=== PATIENT | female | born 1985 | race African-American/Black ===

== ENCOUNTER 2016-11-22 15:12 | Emergency (ER) | payer SELFPAY ==
[2016-11-22 15:52] VITALS: BP 128/70; PULSE 83; TEMP 98.5; BMI 48.4
[2016-11-22] MEDS ORDERED: ACETAMINOPHEN 325 MG TABLET (FP) ONE (17:18)
--- NOTE | 2016-11-22 17:26 | PDOC ---
History of Present Illness - General Chief Complaint: Sore Throat Stated Complaint: THROAT PAIN Time Seen by Provider: 11/22/16 16:47 History Source: Patient Exam Limitations: No Limitations - History of Present Illness Initial Comments: 11/22/16 17:19 Patient states slept with window open last night and air conditioning on under the air-conditioner and feels the amount of postnasal drainage. Denies fever, denies any cough however has significant throat pain and difficulty swallowing. Severity: reports: moderate Possible Cause: Yes: no prior episodes Associated Symptoms: reports: denies symptoms, earache, fever/chills, muscle aches, nasal congestion, nasal drainage, sore throat Past History - Travel Traveled outside of the country in the last 30 days: No Close contact w/someone who was outside of country & ill: No - Past Medical History Allergies/Adverse Reactions: Allergies Allergy/AdvReac Type Severity Reaction Status Date / Time No Known Allergies Allergy Verified 11/22/16 15:52 Home Medications: Ambulatory Orders Docusate Sodium [Colace -] 100 mg PO DAILY 04/03/16 Vitamins (Sjr) - 1 tab PO DAILY 04/03/16 Ibuprofen [Motrin -] 600 mg PO QID #28 tablet 04/06/16 Asthma: No Cancer: No Cardiac Disorders: No Diabetes: No HTN: No Seizures: No Thyroid Disease: No Other medical history: obesity - Psycho/Social/Smoking Cessation Hx Anxiety: No Suicidal Ideation: No Smoking Status: Yes Smoking History: Never smoked Have you smoked in the past 12 months: No Number of Cigarettes Smoked Daily: 3 Information on smoking cessation initiated: No Hx Alcohol Use: No Drug/Substance Use Hx: No Substance Use Type: None Hx Substance Use Treatment: No Review of Systems - Review of Systems Able to Perform ROS?: Yes Is the patient limited Honduran proficient: Yes Constitutional: Yes: Symptoms Reported, Malaise HEENTM: Yes: Symptoms Reported, Nose Congestion, Throat Swelling, Difficulty Swallowing Respiratory: Yes: See HPI. No: Symptoms reported, Cough, Wheezing Cardiac (ROS): No: Symptoms Reported All Other Systems: Reviewed and Negative *Physical Exam - Vital Signs Last Vital Signs Temp Pulse Resp BP Pulse Ox 98.5 F 83 18 128/70 99 11/22/16 15:50 11/22/16 15:50 11/22/16 15:50 11/22/16 15:50 11/22/16 15:50 - Physical Exam General Appearance: Yes: Nourished, Appropriately Dressed, Apparent Distress, Mild Distress HEENT: positive: MANI, TMs Normal, Pharyngeal Erythema (congestion noted but landmarks easily visualized airways patent however has been a large left tonsil nonfluctuant and nontender), Nasal Congestion, Rhinorrhea. negative: Normal ENT Inspection, Pharynx Normal Neck: positive: Supple. negative: Tender, Lymphadenopathy (R), Lymphadenopathy (L) Respiratory/Chest: positive: Lungs Clear, Normal Breath Sounds Cardiovascular: positive: Regular Rate Gastrointestinal/Abdominal: positive: Tender, Soft Extremity: positive: Normal Inspection Integumentary: positive: Normal Color, Dry, Warm, Pale Neurologic: positive: sales and marketing specialist II-XII NML intact, Fully Oriented, Alert, Normal Mood/ Affect, Normal Response, Motor Strength 5/5 Medical Decision Making - Medical Decision Making 11/22/16 19:02 But strep test negative. Will treat conservatively as patient is , and have follow-up with PMD as needed. *DC/Admit/Observation/Transfer Diagnosis at time of Disposition: Allergic rhinitis Qualifiers: Allergic rhinitis trigger: unspecified Allergic rhinitis seasonality: non- seasonal Qualified Code(s): J30.89 - Other allergic rhinitis - Discharge Dispostion Disposition: HOME Condition at time of disposition: Stable Admit: No - Referrals Referrals: Celine Begum [Primary Care Provider] - - Patient Instructions Printed Discharge Instructions: DI for Allergic Rhinitis Additional Instructions: Rest, drink lots of fluids: Teas, water, soups Saltwater gargles. Consider humidifier in room at night Steamy showers/seem to face break up mucus Avoid contact with allergens, exposure to pollens, close windows on a windy day Lots of handwashing and good hygiene Continue [id number] medications for symptomatic relief- may use allergic eyedrops for itching I Continue antihistamines daily until pollen season is over; Benadryl at nighttime as will make sleepy Tylenol for fever and pain Followup with private physician in one to 2 days as needed Consider following up with an investigator utility bill complaints/pharmacy technologist for skin testing and possible allergy shots Return to emergency department for worsened symptoms, fevers, dehydration
== END 2016-11-22 18:24 | disposition home or self-care (01) ==
LOC: JERFT 15:12
DX: J30.89 Other allergic rhinitis (principal)
CPT/HCPCS: 87070; 87430; 99281-25

== ENCOUNTER 2017-06-26 | Inpatient (IN) | payer OTHER ==
[~2017-06-26] MED LIST: ELECTROLYTE-148 SOLN 1,000 ML IV SCH
[2017-06-26 00:55] VITALS: BMI 58.3
[2017-06-26 00:55] LABS: BASOPHIL 0.3 % (0-2.0); EOSINOPHIL 0.7 % (0-4.5); MCH 28.6 pg (25.7-33.7); MCHC 32.8 g/dl (32.0-36.0); MEAN CELL VOLUME 87.1 fl (80-96); MEAN PLT VOLUME 8.8 fl (7.5-11.1); PLATELET COUNT 206 K/MM3 (134-434); RDW 14.1 % (11.6-15.6); WHITE BLOOD COUNT 8.3 K/mm3 (4.0-10.0)
[2017-06-26 01:07] LABS: URINE MARIJUANA THC NEGATIVE ng/ml (CUTOFF=50)
[2017-06-26 01:19] LABS: ANION GAP 8 (8-16); CALCIUM 8.7 mg/dL (8.5-10.1); CO2 25 mmol/L (21-32); CREATININE 0.6 mg/dL (0.55-1.02); GLUCOSE,RANDOM 88 mg/dL (74-106)
[2017-06-26 01:30] LABS: INR 0.94 (0.82-1.09); PROTHROMBIN TIME (PATIENT) 10.6 SEC (9.98-11.88)
[2017-06-26 01:33] LABS: ACTIVATED PTT 35.6 SECONDS (26.9-34.4)
[2017-06-26] MEDS ORDERED: BUTORPHANOL TARTRATE 1 MG/ML VIAL IVPUSH ONE (02:00)
[2017-06-26] MEDS ORDERED: PROMETHAZINE HCL 25 MG/1 ML VIAL IVPUSH ONE (02:00)
--- NOTE | 2017-06-26 03:10 | HP ---
Past Medical History - Admission Chief Complaint: Labor pain History of Present Illness: 31 yo @ 39.6 weeks gestation, admitted for labor pain. She denes any rupture of membrane nor vaginal bleeding. She only had 2 visits. History Source: Patient Limitations to Obtaining History: No Limitations - Past Medical History ...: 9 ...Para: 4 ...Term: 4 ...: 0 ...Spon : 0 ...Induced : 4 ...Multiple Gestation: 0 ...EDC by [facility]: 06/27/17 - Past Surgical History Past Surgical History: Yes: None Hx Myomectomy: No Hx Transabdominal Cerclage: No - Smoking History Smoking history: Never smoked Have you smoked in the past 12 months: No Aproximately how many cigarettes per day: 3 - Alcohol/Substance Use Hx Alcohol Use: No - Social History History of Recent Travel: No Home Medications - Allergies Allergies/Adverse Reactions: Allergies Allergy/AdvReac Type Severity Reaction Status Date / Time No Known Allergies Allergy Verified 11/22/16 15:52 - Home Medications Home Medications: Ambulatory Orders Vitamins (Sjr) - 1 tab PO DAILY 04/03/16 Family Disease History - Family Disease History Family History: Unremarkable Review of Systems - Review of Systems Constitutional: reports: No Symptoms Eyes: reports: No Symptoms HENT: reports: No Symptoms Neck: reports: No Symptoms Cardiovascular: reports: No Symptoms Respiratory: reports: No Symptoms Gastrointestinal: reports: No Symptoms Genitourinary: reports: Pain Breasts: reports: No Symptoms Reported Musculoskeletal: reports: No Symptoms Integumentary: reports: No Symptoms Neurological: reports: No Symptoms Endocrine: reports: No Symptoms Hematology/Lymphatic: reports: No Symptoms Psychiatric: reports: No Symptoms Pain Intensity: 7 Physical Exam - Maternity Vital Signs: Vital Signs Temperature 98.0 F 06/26/17 01:00 Pulse Rate 86 06/26/17 02:00 Respiratory Rate 20 06/26/17 02:00 Blood Pressure 153/88 06/26/17 02:00 O2 Sat by Pulse Oximetry (%) Constitutional: Yes: Well Nourished Eyes: Yes: Conjunctiva Clear HENT: Yes: Atraumatic Neck: Yes: Supple Cardiovascular: Yes: Regular Rate and Rhythm Lungs: Clear to auscultation Breast(s): Yes: WNL - Abdominal Exam/OB Number of Fetuses: Single Presentation: Vertex - Vaginal Exam/OB Dilatation (cm): 3-3 Effacement (%): 80 Amniotic Membrane Status: Intact Station: -2 - Physical Exam ...Motor Strength: WNL Psychiatric: Yes: Alert, Oriented - Labs Lab Results: CBC, BMP 06/26/17 00:35 06/26/17 00:35 Problem List - Problems (1) Pain during labor Code(s): O99.89 - OTH DISEASES AND CONDITIONS COMPL PREG/CHLDBRTH; R52 - PAIN, UNSPECIFIED Assessment/Plan Active labor Analgesia as needed Anticipate
--- NOTE | 2017-06-26 03:14 | PN ---
Progress Note (short form) - Note Progress Note: Patient seen and evaluated. She's status post stadol; she's sleeping comfortably. FHR : Reassuring [place] : + irregular contractions VE : /-1 AROM clear A/P : Active labor Anticipate Problem List - Problems (1) Pain during labor Code(s): O99.89 - OTH DISEASES AND CONDITIONS COMPL PREG/CHLDBRTH; R52 - PAIN, UNSPECIFIED
[2017-06-26] MEDS ORDERED: METHYLERGONOVINE MALEATE 0.2 MG/1 ML AMP IM PRN (03:39)
[2017-06-26] MEDS ORDERED: BENZOCAINE 20% 57 GM BOTTLE TP PRN (03:39)
[2017-06-26] MEDS ORDERED: WITCH HAZEL 50% (TUCKS) 40 PAD/JAR PAD TP PRN (03:39)
[2017-06-26] MEDS ORDERED: BENZOCAINE 28 GM HEMORRHOIDAL OINTMENT TP PRN (03:39)
[2017-06-26] MEDS ORDERED: BISACODYL 10 MG SUPP.RECT RC PRN (03:39)
[2017-06-26] MEDS: OXYTOCIN 20 UNITS in 0.9% NS 20 UNIT/1,000 ML INFUS.BAG IV SCH ×2 (03:40→07:20)
--- NOTE | 2017-06-26 03:43 | PN ---
Delivery - Delivery Vaginal Delivery: Spontaneous Episiotomy/Laceration: None EBL (cc): 300 Delivery, Single - Feeding Plan Initial Plan: Elected not to breastfeed exclusively throughout hospitalization Remarks - Remarks Remarks: Normal spontaneous vaginal delivery of a live infant girl over intact perineum. Nose / Oropharynx suctioned @ perineum. Cord clamped and cut. Placenta expelled spontaneously intact.
--- NOTE | 2017-06-26 03:47 | DS ---
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 Vital Signs: Vital Signs Temperature 98.0 F 06/26/17 01:00 Pulse Rate 86 06/26/17 02:00 Respiratory Rate 20 06/26/17 02:00 Blood Pressure 153/88 06/26/17 02:00 O2 Sat by Pulse Oximetry (%) Constitutional: Yes: Well Nourished Eyes: Yes: Conjunctiva Clear HENT: Yes: Atraumatic Neck: Yes: Supple Cardiovascular: Yes: Regular Rate and Rhythm Respiratory: Yes: Regular Gastrointestinal: Yes: Normal Bowel Sounds External Genitalia: Yes: Normal Vaginal Exam: Yes: Normal Cervix: Yes: Normal Uterus: Yes: Firm ....Post : Yes: Uterus firm, Moderate lochia serosa Breast(s): Yes: WNL Neurological: Yes: Alert, Oriented ...Motor Strength: WNL Psychiatric: Yes: Alert, Oriented Labs: CBC, BMP 06/26/17 00:35 06/26/17 00:35 Delivery - Delivery Vaginal Delivery: Spontaneous Episiotomy/Laceration: None EBL (cc): 300 Delivery, Single - 1 Minute Total Score: 9 5 Minutes Total Score: 9 - Feeding Plan Initial Plan: Elected not to breastfeed exclusively throughout hospitalization Discharge Summary Reason For Visit: LABOR ADMIT Current Active Problems Normal spontaneous vaginal delivery (Acute) Pain during labor (Acute) Procedures: Principal: Spontaneous vaginal delivery Hospital Course: Routine care Condition: Good - Instructions Diet, Activity, Other Instructions: Regular diet No douching, no sexual intercourse x 6 weeks F/U in clinic in 6 weeks Disposition: HOME - Home Medications Comprehensive Discharge Medication List: Ambulatory Orders Vitamins (Sjr) - 1 tab PO DAILY 04/03/16
[2017-06-26] MEDS: ACETAMINOPHEN 325 MG TABLET (FP) PO PRN ×3 (05:05→14:23)
[2017-06-26] MEDS: IBUPROFEN 600 MG TABLET (FP) PO PRN ×3 (05:05→14:22)
[2017-06-26] MEDS: FERROUS SO4 325 MG TABLET (FP) PO SCH ×3 (08:27→17:17)
[2017-06-26] MEDS: PRENATAL VITAMINS W/ FOLIC ACID TABLET (FP) PO SCH (09:09)
[2017-06-26] MEDS ORDERED: oxyCODONE HCL 5 MG TABLET PO PRN (16:02)
[2017-06-27 07:31] LABS: BASOPHIL 0.3 % (0-2.0); EOSINOPHIL 1.8 % (0-4.5); MCH 28.7 pg (25.7-33.7); MCHC 32.6 g/dl (32.0-36.0); MEAN CELL VOLUME 88.1 fl (80-96); MEAN PLT VOLUME 8.9 fl (7.5-11.1); NEUTROPHILS 55.5 % (42.8-82.8); PLATELET COUNT 194 K/MM3 (134-434); WHITE BLOOD COUNT 8.5 K/mm3 (4.0-10.0)
[2017-06-27] MEDS: IBUPROFEN 600 MG TABLET (FP) PO PRN (08:35)
[2017-06-27] MEDS: ACETAMINOPHEN 325 MG TABLET (FP) PO PRN (08:35)
[2017-06-27] MEDS: FERROUS SO4 325 MG TABLET (FP) PO SCH ×3 (08:35→17:04)
[2017-06-27] MEDS: PRENATAL VITAMINS W/ FOLIC ACID TABLET (FP) PO SCH (09:27)
--- NOTE | 2017-06-27 10:09 | PN ---
Post Progress Note - Subjective Subjective: no complains . Post Day: 1 Type of Delivery: Vital Signs: Vital Signs Temperature 98.0 F 06/26/17 22:00 Pulse Rate 78 06/26/17 22:00 Respiratory Rate 20 06/26/17 22:00 Blood Pressure 128/88 06/26/17 22:00 O2 Sat by Pulse Oximetry (%) Breast Exam: Yes: Soft, Other (BF ) Uterus: Yes: Fundus Firm, Fundus below umbilicus, Non-tender Lochia: Yes: Rubra Lochia, amount: Moderate Extremities: Yes: Calves non-tender Perineum: Yes: Intact Activity: Ambulating - Labs Labs: CBC WBC 8.5 K/mm3 (4.0-10.0) 06/27/17 06:30 RBC 3.45 M/mm3 (3.60-5.2) L 06/27/17 06:30 Hgb 9.9 GM/dL (10.7-15.3) L 06/27/17 06:30 Hct 30.4 % (32.4-45.2) L 06/27/17 06:30 MCV 88.1 fl (80-96) 06/27/17 06:30 MCH 28.7 pg (25.7-33.7) 06/27/17 06:30 MCHC 32.6 g/dl (32.0-36.0) 06/27/17 06:30 RDW 14.0 % (11.6-15.6) 06/27/17 06:30 Plt Count 194 K/MM3 (134-434) 06/27/17 06:30 MPV 8.9 fl (7.5-11.1) 06/27/17 06:30 Neutrophils % 55.5 % (42.8-82.8) 06/27/17 06:30 Lymphocytes % 32.1 % (8-40) D 06/27/17 06:30 Monocytes % 10.3 % (3.8-10.2) H 06/27/17 06:30 Eosinophils % 1.8 % (0-4.5) D 06/27/17 06:30 Basophils % 0.3 % (0-2.0) 06/27/17 06:30 Assessment/Plan Anemia .stable discharge tomorrow.
[2017-06-27] MEDS ORDERED: SENNOSIDES/DOCUSATE COMBO (SENNA PLUS) TABLET (UD) PO PRN (22:00)
[2017-06-28 07:38] VITALS: BP 134/84; PULSE 82; TEMP 98.6
[2017-06-28] MEDS: PRENATAL VITAMINS W/ FOLIC ACID TABLET (FP) PO SCH (09:06)
[2017-06-28] MEDS: FERROUS SO4 325 MG TABLET (FP) PO SCH (09:06)
[2017-06-28] MEDS: IBUPROFEN 600 MG TABLET (FP) PO PRN (09:06)
== END 2017-06-28 11:15 | disposition home or self-care (01) | DRG 560 ==
LOC: JLDR → J3W 05:30
PROVIDERS: ADMIT Obstetrics & Gynecology; ATTEND Obstetrics & Gynecology
PROC: 10E0XZZ Delivery of Products of Conception, External Approach (ICD-10-PCS; principal; 2017-06-26)
DX: O99.02 Anemia complicating childbirth (principal); D64.9 Anemia, unspecified; Z37.0 Single live birth; Z3A.39 39 weeks gestation of pregnancy
CPT/HCPCS: 36415; 59409; 80048; 80307; 85025; 85610; 85730; 86593; 86850; 86900; 86901

== ENCOUNTER 2018-03-31 08:23 | Emergency (ER) | payer OTHER ==
[2018-03-31 08:32] VITALS: BMI 50.0
--- NOTE | 2018-03-31 08:41 | PDOC ---
History of Present Illness - General Chief Complaint: Vaginal Sxs Stated Complaint: VAGINAL Time Seen by Provider: 03/31/18 08:41 - History of Present Illness Initial Comments: 32 year old [id number] presenting with copious clear vaginal discharge a half an hour before presentation to our ED. She was in her car and expected to pass gas with some bearing down but instead felt copious vaginal discharge that was clear and concerning to her for amniotic fluid. Her LMP was 02/17/2018 and she hasn't had it yet this month. She is usually quite regular since her last delivery on 06/2017. Denies any bleeding. fevers, chills, nausea, vomiting, diarrhea, abdominal cramping, or other symptoms. She has had increasing abdominal girth over the pat few months but attributed that to regular weight gain. 03/31/18 08:42 Past History - Past Medical History Allergies/Adverse Reactions: Allergies Allergy/AdvReac Type Severity Reaction Status Date / Time No Known Allergies Allergy Verified 03/31/18 08:29 Home Medications: Ambulatory Orders Vitamins (Sjr) - 1 tab PO DAILY 04/03/16 Asthma: No Cancer: No Cardiac Disorders: No Diabetes: No HTN: No Seizures: No Thyroid Disease: No - Suicide/Smoking/Psychosocial Hx Smoking Status: Yes Smoking History: Never smoked Have you smoked in the past 12 months: No Number of Cigarettes Smoked Daily: 3 Information on smoking cessation initiated: No Hx Alcohol Use: No Drug/Substance Use Hx: No Substance Use Type: None Hx Substance Use Treatment: No Review of Systems - Review of Systems Constitutional: No: Diaphoresis, Fever, Loss of Appetite HEENTM: No: Blurred Vision, Tearing Respiratory: No: Shortness of Breath, SOB with Exertion Cardiac (ROS): No: Chest Pain, Edema, Irregular Heart Rate ABD/GI: No: Diarrhea, Nausea, Vomiting : No: Dysuria, Discharge, Frequency Musculoskeletal: No: Back Pain, Joint Pain Integumentary: No: Flushing, Lesions, Lumps Neurological: No: Headache, Numbness, Paresthesia Psychiatric: No: Anxiety, Depression Hematologic/Lymphatic: No: Anemia, Blood Clots, Easy Bleeding *Physical Exam - Vital Signs Last Vital Signs Temp Pulse Resp BP Pulse Ox 98.2 F 110 H 16 137/77 100 03/31/18 08:29 03/31/18 08:29 03/31/18 08:29 03/31/18 08:29 03/31/18 08:29 - Physical Exam General Appearance: Yes: Nourished, Appropriately Dressed. No: Apparent Distress HEENT: positive: EOMI, MANI, Normal ENT Inspection, Normal Voice Neck: positive: Trachea midline, Normal Thyroid, Supple. negative: Tender, Rigid Respiratory/Chest: positive: Lungs Clear, Normal Breath Sounds. negative: Chest Tender, Respiratory Distress Cardiovascular: positive: Regular Rhythm, Tachycardia. negative: Regular Rate Female Pelvic Exam: positive: normal external exam, cervical os closed, normal adnexa, normal size ovaries, discharge (copious amounts of clear fluid in vaginal vault). negative: CMT Gastrointestinal/Abdominal: positive: Normal Bowel Sounds, Flat, Soft. negative : Tender Lymphatic: negative: Adenopathy, Tenderness Musculoskeletal: positive: Normal Inspection. negative: Decreased Range of Motion Extremity: positive: Normal Capillary Refill, Normal Inspection, Normal Range of Motion, Pelvis Stable. negative: Tender Integumentary: positive: Normal Color, Dry, Warm Neurologic: positive: Fully Oriented, Alert, Normal Mood/Affect, Normal Response , Motor Strength 5/5 ED Treatment Course - LABORATORY CBC & Chemistry Diagram: 03/31/18 09:45 03/31/18 09:45 Medical Decision Making - Medical Decision Making 32 year old female with clear vaginal fluid discharge and pooling in the vagina with positive and 22 week on TVUS. Transabdominal US was difficult because of body habitus, and bowel. Patient stable so will DC to L &D. 03/31/18 10:34 *DC/Admit/Observation/Transfer Diagnosis at time of Disposition: 22 weeks gestation of - Discharge Dispostion Disposition: HOME Condition at time of disposition: Stable Decision to Admit order: No - Referrals Referrals: Celine Begum [Primary Care Provider] - - Patient Instructions Printed Discharge Instructions: DI for -- Discomforts and Remedies Additional Instructions: Please follow up with L&D for your . Please return to the ED if you have new or worsening symptoms. - Post Discharge Activity
--- NOTE | 2018-03-31 09:01 | PDOC ---
Attending Attestation - HPI HPI: 03/31/18 10:40 The patient is a 32 year old female , with no significant PMH, who presents to the emergency department with vaginal discharge this morning. The patient states she noticed clear vaginal discharge when she bear down to pass gas in the car and was concerned that it may be amniotic fluid. The patient reports her LMP was 02/17/2018. The patient denies chest pain, shortness of breath, headache and dizziness. Denies fever, chills, nausea, vomit, diarrhea and constipation. Denies dysuria, frequency, urgency and hematuria. Allergies: NKDA Past surgical history: None reported Social history: None reported PCP: Celine Begum Documentation prepared by Robbin Arcos, acting as medical laboratory manager for Ana Frey MD. - Physicial Exam PE: 03/31/18 10:41 GENERAL:+Obese. Awake, alert, and fully oriented, in no acute distress HEAD: No signs of trauma NECK: Normal ROM, supple, no lymphadenopathy, JVD, or masses LUNGS: Breath sounds equal, clear to auscultation bilaterally. No wheezes, and no crackles HEART: Regular rate and rhythm, normal S1 and S2, no murmurs, rubs or gallops ABDOMEN: Soft, nontender, normoactive bowel sounds. No guarding, no rebound. No masses SKIN: Warm, Dry, normal turgor, no rashes or lesions noted. <Robbin Arcos - Last Filed: 03/31/18 10:40> - Resident Resident Name: Raisa Cox - Medical Decision Making 04/02/18 10:53 Pt presents to the ED complaining of drainage of clear fluid from her vagina. Initial suspicion for with leakage of aminotic fluid, but os was closed on exam and abdomen was obese but not clearly gravid. positive test. Sent for official US, which showed IUP at 22 weeks gestation. Patient sent to L and D for evaluation of possible ruptured membranes. <Ana Frey - Last Filed: 04/02/18 10:57>
[2018-03-31 09:16] LABS: HCG,QUALITATIVE URINE Positive
[2018-03-31 09:21] LABS: URINE APPEARANCE CLEAR; URINE BILIRUBIN NEGATIVE (<2.0 mg/dL); URINE COLOR LTYELLOW; URINE GLUCOSE (UA) NEGATIVE (NEGATIVE); URINE KETONE NEGATIVE (NEGATIVE); URINE NITRITE NEGATIVE (NEGATIVE); URINE PROTEIN NEGATIVE (NEGATIVE); URINE UROBILINOGEN NEGATIVE mg/dL (0.2-1.0)
[2018-03-31 09:25] LABS: URINE LEUK ESTERASE 1+ (NEGATIVE)
[2018-03-31 09:26] LABS: EPI CELLS RARE /HPF (FEW); URINE MUCUS RARE
[2018-03-31 09:55] LABS: BASO % 0.4 % (0-2.0); EOS % 1.2 % (0-4.5); HEMATOCRIT 37.2 % (32.4-45.2); HEMOGLOBIN 12.6 GM/dL (10.7-15.3); LYMPH % 25.4 % (8-40); MCH 29.8 pg (25.7-33.7); MCHC 33.9 g/dl (32.0-36.0); MEAN CELL VOLUME 87.8 fl (80-96); MEAN PLT VOLUME 9.2 fl (7.5-11.1); MONO % 11.3 % (3.8-10.2); NEUT % 61.7 % (42.8-82.8); PLATELET COUNT 205 K/MM3 (134-434); RBC 4.23 M/mm3 (3.60-5.2); RDW 14.3 % (11.6-15.6); WHITE BLOOD COUNT 7.6 K/mm3 (4.0-10.0)
[2018-03-31 10:13] LABS: ALBUMIN 2.8 g/dl (3.4-5.0); ANION GAP 9 MMOL/L (8-16); BLOOD UREA NITROGEN 14 mg/dL (7-18); CHLORIDE 107 mmol/L (98-107); CO2 25 mmol/L (21-32); CREATININE 0.5 mg/dL (0.55-1.02); GLUCOSE,RANDOM 92 mg/dL (74-106); POTASSIUM 4.1 mmol/L (3.5-5.1); SGOT/AST 15 U/L (15-37); SGPT/ALT 18 U/L (12-78); SODIUM 141 mmol/L (136-145)
[2018-03-31 10:15] LABS: BILIRUBIN,TOTAL 0.1 mg/dL (0.2-1.0); TOT PROT 7.1 g/dl (6.4-8.2)
[2018-03-31 10:27] LABS: ALK PHOS 84 U/L (45-117)
[2018-03-31 12:07] VITALS: BP 148/78; PULSE 95; TEMP 98.8
== END 2018-03-31 11:47 | disposition left against medical advice (07) ==
LOC: JER 08:23
DX: O26.892 Other specified pregnancy related conditions, second trimester (principal); O42.912 Preterm premature rupture of membranes, unspecified as to length of time between rupture and onset of labor, second trimester; Z3A.22 22 weeks gestation of pregnancy
CPT/HCPCS: 36415; 76815-TC; 76817-TC; 80053; 81003; 81015; 84702; 84703; 85025; 86850; 86900; 86901; 87086; 99282-25

== ENCOUNTER 2019-01-21 06:28 | Emergency (ER) | payer OTHER ==
[2019-01-21 07:14] VITALS: BP 131/94; PULSE 91; TEMP 98.3; BMI 46.5
[2019-01-21] MEDS ORDERED: KETOROLAC TROMETHAMINE 60 MG/2 ML VIAL IM ONE (07:21)
--- NOTE | 2019-01-21 07:21 | PDOC ---
History of Present Illness - General Chief Complaint: Sore Throat Stated Complaint: SORE THROAT Time Seen by Provider: 01/21/19 07:19 History Source: Patient - History of Present Illness Timing/Duration: reports: other Associated Symptoms: reports: sore throat. denies: cough, earache, fever/chills , nasal congestion Past History - Past Medical History Allergies/Adverse Reactions: Allergies Allergy/AdvReac Type Severity Reaction Status Date / Time No Known Allergies Allergy Verified 01/21/19 07:01 Home Medications: Ambulatory Orders Vitamins (Sjr) - 1 tab PO DAILY 04/03/16 Amoxicillin - [Amoxicillin 500mg Capsule -] 500 mg PO BID #14 capsule 01/21/19 Ibuprofen [Motrin -] 2 tab PO Q6H #30 tablet 01/21/19 Methylprednisolone [Medrol Dose Robert] 4 mg PO ASDIR #21 tablet 01/21/19 Asthma: No Cancer: No Cardiac Disorders: No COPD: No Diabetes: No HTN: No Seizures: No Thyroid Disease: No - Reproductive History (#): 9 Para: 5 - Suicide/Smoking/Psychosocial Hx Smoking Status: Yes Smoking History: Never smoked Have you smoked in the past 12 months: No Number of Cigarettes Smoked Daily: 3 Information on smoking cessation initiated: No Hx Alcohol Use: No Drug/Substance Use Hx: No Substance Use Type: None Hx Substance Use Treatment: No Review of Systems - Review of Systems Constitutional: No: Chills, Fever HEENTM: Yes: Throat Pain. No: Ear Pain Respiratory: No: Cough *Physical Exam - Vital Signs Last Vital Signs Temp Pulse Resp BP Pulse Ox 98.3 F 91 H 16 131/94 100 01/21/19 06:30 01/21/19 06:30 01/21/19 06:30 01/21/19 06:30 01/21/19 06:30 - Physical Exam General Appearance: Yes: Appropriately Dressed. No: Apparent Distress HEENT: positive: MANI, Normal Voice, TMs Normal, Muffled/Hoarse voice, Other ( fullness w/ erythema to R posterior pharynx, no exudates, uvula midline) Neck: positive: Supple Respiratory/Chest: negative: Respiratory Distress Gastrointestinal/Abdominal: negative: Tender, Soft Integumentary: positive: Dry, Warm Neurologic: positive: Fully Oriented, Alert, Normal Mood/Affect Medical Decision Making - Medical Decision Making 01/21/19 08:18 33 yo F, no sig hx, with severe throat pain 3 days. No cough, fever or chills. No known sick contacts. See exam Pharyngitis Stable Rapid strep neg, cx sent Will tx w/ abx given findings on exam -dose of toradol and decadron given here -to return as needed *DC/Admit/Observation/Transfer Diagnosis at time of Disposition: Pharyngitis Qualifiers: Pharyngitis/tonsillitis etiology: unspecified etiology Qualified Code(s): J02.9 - Acute pharyngitis, unspecified - Discharge Dispostion Disposition: HOME Condition at time of disposition: Fair - Prescriptions Prescriptions: Amoxicillin - [Amoxicillin 500mg Capsule -] 500 mg PO BID #14 capsule Ibuprofen [Motrin -] 2 tab PO Q6H #30 tablet Methylprednisolone [Medrol Dose Robert] 4 mg PO ASDIR #21 tablet - Referrals - Patient Instructions Printed Discharge Instructions: DI for Pharyngitis/Tonsillopharyngitis -- Adult Additional Instructions: Your rapid strep test here was negative but based on your exam, we have decided to treat you with antibiotics pending your throat culture. Also, take the Motrin and the steroid Dosepak that was prescribed. If symptoms worsen, please return to the emergency department - Post Discharge Activity Forms/Work/School Notes: Back to Work
[2019-01-21] MEDS ORDERED: DEXAMETHASONE SOD PHOSPHATE 10 MG/1 ML VIAL IM ONE (07:22)
[2019-01-21] MEDS ORDERED: KETOROLAC TROMETHAMINE 60 MG/2 ML VIAL ONE (07:28)
[2019-01-21] MEDS ORDERED: DEXAMETHASONE SOD PHOSPHATE 10 MG/1 ML VIAL ONE (07:28)
== END 2019-01-21 08:55 | disposition home or self-care (01) ==
LOC: JER 06:28
PROC: 3E0233Z Introduction of Anti-inflammatory into Muscle, Percutaneous Approach (ICD-10-PCS; principal; 2019-01-21)
PROC: 3E0233Z Introduction of Anti-inflammatory into Muscle, Percutaneous Approach (ICD-10-PCS; 2019-01-21)
DX: J02.9 Acute pharyngitis, unspecified (principal)
CPT/HCPCS: 87070; 87880; 96372; 99281-25; J1100

== ENCOUNTER 2020-12-15 20:45 | Emergency (ER) | payer OTHER ==
[2020-12-15 20:54] VITALS: BP 126/80; PULSE 116; TEMP 98.2; BMI 51.5
[2020-12-15] MEDS ORDERED: KETOROLAC TROMETHAMINE 30 MG/1 ML VIAL IM ONE (21:22)
[2020-12-15] MEDS ORDERED: CLINDAMYCIN HCL 300 MG CAPSULE PO ONE (21:22)
[2020-12-15] MEDS ORDERED: DEXAMETHASONE LIQUID 0.5 MG/5 ML PO ONE (21:22)
[2020-12-15] MEDS ORDERED: KETOROLAC TROMETHAMINE 30 MG/1 ML VIAL ONE (21:36)
[2020-12-15] MEDS ORDERED: DEXAMETHASONE SOD PHOSPHATE 10 MG/1 ML VIAL ONE (21:36)
[2020-12-15] MEDS ORDERED: CLINDAMYCIN HCL 150 MG CAPSULE (FP) ONE (21:39)
== END 2020-12-15 22:57 | disposition home or self-care (01) ==
LOC: JER 20:45 → JERFT 20:45
PROC: 3E023GC Introduction of Other Therapeutic Substance into Muscle, Percutaneous Approach (ICD-10-PCS; principal; 2020-12-15)
DX: J36 Peritonsillar abscess (principal)
CPT/HCPCS: 99284-25